=== PATIENT | female | born 1945 | race Caucasian/White ===

== ENCOUNTER 2022-11-26 18:45 | Emergency (ER) | payer MEDICARE, OTHER ==
[2022-11-26] MEDS ORDERED: diphenhydrAMINE 25 MG Cap PO ONE (19:26)
== END 2022-11-26 21:15 | disposition home or self-care (01) ==
LOC: LL.ED 18:45
DX: T78.40XA Allergy, unspecified, initial encounter (principal); E03.9 Hypothyroidism, unspecified; F17.210 Nicotine dependence, cigarettes, uncomplicated; Z91.040 Latex allergy status; Z79.899 Other long term (current) drug therapy
CPT/HCPCS: 99283; A9270-GY

== ENCOUNTER 2022-12-02 15:15 | Emergency (ER) | payer MEDICARE, OTHER ==
[2022-12-02] MEDS: fentaNYL 50 MCG/ML SDV IVPUSH ONE (15:42)
[2022-12-02] MEDS: Ondansetron 4 MG Tab.DIS PO ONE (15:42)
[2022-12-02] MEDS: Sodium Chloride 0.9% 10 ML Syringe FLUSH PRN (15:47)
== END 2022-12-02 16:50 | disposition home or self-care (01) ==
LOC: LL.ED 15:15
DX: S52.501A Unspecified fracture of the lower end of right radius, initial encounter for closed fracture (principal); S52.601A Unspecified fracture of lower end of right ulna, initial encounter for closed fracture; E03.9 Hypothyroidism, unspecified; Z91.040 Latex allergy status; Z79.899 Other long term (current) drug therapy; W00.0XXA Fall on same level due to ice and snow, initial encounter
CPT/HCPCS: 29125; 73100-RT; 96374; 99283-25; A9270-GY; J3010; J3490

== ENCOUNTER 2023-08-08 10:13 | Emergency (ER) | payer MEDICARE, OTHER ==
[2023-08-08] MEDS: Take Home: Amoxicillin/Clavulanate K 875-125 MG Tab, 6 Tab Pack PO ONE (11:08)
[2023-08-08] MEDS: Bupivacaine 0.5%/EPINEPHrine 1:200,000 30 ML SDV INJECT ONE (11:17)
== END 2023-08-08 11:45 | disposition home or self-care (01) ==
LOC: LL.ED 10:13
DX: K04.7 Periapical abscess without sinus (principal); F17.210 Nicotine dependence, cigarettes, uncomplicated; E03.9 Hypothyroidism, unspecified; Z79.899 Other long term (current) drug therapy; Z91.040 Latex allergy status
CPT/HCPCS: 64400; 99282; A9270-GY; J3490

== ENCOUNTER 2025-01-26 08:51 | Emergency (ER) | payer MEDICARE ==
[2025-01-26 09:11] VITALS: BP 153/77; PULSE 84
== END 2025-01-26 10:20 | disposition home or self-care (01) ==
LOC: LL.ED 08:51
DX: S93.601A Unspecified sprain of right foot, initial encounter (principal); Z91.040 Latex allergy status; Z79.899 Other long term (current) drug therapy; Z79.890 Hormone replacement therapy; X50.1XXA Overexertion from prolonged static or awkward postures, initial encounter; Y93.89 Activity, other specified
CPT/HCPCS: 73630-RT; 99283